=== PATIENT | male | born 1960 | race Caucasian/White ===

== ENCOUNTER 2016-09-02 12:36 | Emergency (ER) | payer MEDICAID ==
[~2016-09-02] VITALS: Ht 167.6 cm; Wt 63.5 kg
[~2016-09-02 12:36] MED LIST: CEPH-91; CYCL5TAB89; ESOM20CA; LEVO25TA49; NAPR-223
[2016-09-02 12:53] VITALS: BP 124/88
[2016-09-02] MEDS ORDERED: HYDROcodone-ACET 10/325MG TAB PO ONE (13:15)
== END 2016-09-02 14:57 | disposition home or self-care (01) ==
LOC: EDBD 12:36 → ER 12:43
DX: S16.1XXA Strain of muscle, fascia and tendon at neck level, initial encounter (principal); J44.9 Chronic obstructive pulmonary disease, unspecified; E07.9 Disorder of thyroid, unspecified; G89.29 Other chronic pain; Z87.440 Personal history of urinary (tract) infections; X58.XXXA Exposure to other specified factors, initial encounter; Y93.89 Activity, other specified; Y99.8 Other external cause status; Y92.89 Other specified places as the place of occurrence of the external cause; Z88.6 Allergy status to analgesic agent; Z88.2 Allergy status to sulfonamides; Z79.899 Other long term (current) drug therapy
CPT/HCPCS: 72040

== ENCOUNTER 2022-09-13 18:03 | Emergency (ER) | payer MEDICAID ==
[~2022-09-13] VITALS: Ht 167.6 cm; Wt 70.0 kg
[2022-09-13] MEDS ORDERED: SODIUM CHLORIDE 0.9% 1,000 ML IV ONE (18:30)
[2022-09-13 18:39] LABS: Basophils # (auto) 0.1 10 ^3/uL (0-0.2); Basophils % (auto) 0.7 % (0.0-2.0); Eosinophils # (auto) 0.1 10 ^3/uL (0-0.8); Eosinophils % (auto) 0.8 % (0.0-7.0); Hematocrit 38.4 % (41.0-53.0); Hemoglobin 12.8 g/dL (13.5-17.5); Lymphocytes # (auto) 1.4 10 ^3/uL (0.4-5.4); Lymphocytes % (auto) 18.9 % (10.0-50.0); Mean Corpuscular Hemoglobin 31.4 pg (28.0-32.0); Mean Corpuscular Hgb Conc. 33.4 g/dL (32.0-36.0); Monocytes # (auto) 0.6 10 ^3/uL (0-1.3); Neutrophils # (auto) 5.1 10 ^3/uL (1.6-8.6); Neutrophils % (auto) 71.6 % (37.0-80.0); Nucleated Red Blood Cells % 0.1 %; Red Blood Cells 4.08 10^6/uL (4.5-5.90); Red Cell Distribution Width 14.2 % (11.8-14.3); White Blood Cell 7.2 10^3/uL (4.4-10.8)
[2022-09-13 18:55] LABS: Albumin 3.5 g/dL (3.4-5.0); Calcium 7.8 mg/dL (8.5-10.1)
[2022-09-13 18:57] LABS: BUN/Creatinine Ratio 13.4 (10.0-20.0); Bilirubin, Total 0.8 mg/dL (0.2-1.0); Total Protein 5.7 g/dL (6.4-8.2)
[2022-09-13 21:30] VITALS: BP 134/82
== END 2022-09-13 21:36 | disposition home or self-care (01) ==
LOC: EDBD 18:03 → ER 18:08
DX: E86.0 Dehydration (principal); J44.9 Chronic obstructive pulmonary disease, unspecified; E87.5 Hyperkalemia; Z90.49 Acquired absence of other specified parts of digestive tract; Z90.89 Acquired absence of other organs; Z88.5 Allergy status to narcotic agent; Z88.6 Allergy status to analgesic agent; Z88.2 Allergy status to sulfonamides; Z87.442 Personal history of urinary calculi
CPT/HCPCS: 36415; 80053; 84484; 85025; 93005; 99284; J7030

== ENCOUNTER 2023-08-23 11:11 | Inpatient (IN) | payer MEDICAID ==
[~2023-08-23] VITALS: Ht 167.6 cm; Wt 66.5 kg
[~2023-08-23 11:11] MED LIST changes: +LEVO25TA2; -LEVO25TA49
[2023-08-23] MEDS: SODIUM CHLORIDE 0.9% 1,000 ML IV ONE ×2 (11:30)
[2023-08-23 12:12] LABS: Basophils # (auto) 0 10 ^3/uL (0-0.2); Basophils % (auto) 0.6 % (0.0-2.0); Eosinophils # (auto) 0.3 10 ^3/uL (0-0.8); Eosinophils % (auto) 4.5 % (0.0-7.0); Hematocrit 39.1 % (41.0-53.0); Hemoglobin 12.5 g/dL (13.5-17.5); Lymphocytes # (auto) 1.9 10 ^3/uL (0.4-5.4); Lymphocytes % (auto) 27.7 % (10.0-50.0); Mean Corpuscular Hemoglobin 29.8 pg (28.0-32.0); Mean Corpuscular Hgb Conc. 31.9 g/dL (32.0-36.0); Mean Corpuscular Volume 93.5 fL (80.0-100.0); Monocytes # (auto) 0.5 10 ^3/uL (0-1.3); Neutrophils # (auto) 4.1 10 ^3/uL (1.6-8.6); Neutrophils % (auto) 60.2 % (37.0-80.0); Nucleated Red Blood Cells % 0.1 %; Red Blood Cells 4.18 10^6/uL (4.5-5.90); White Blood Cell 6.9 10^3/uL (4.4-10.8)
[2023-08-23 12:52] LABS: Chloride 111 mmol/L (98-107); Potassium 4.7 mmol/L (3.5-5.1); Sodium 144 mmol/L (136-145)
[2023-08-23 12:53] LABS: Anion Gap 5 (5-15); Carbon Dioxide 28 mmol/L (20-30)
[2023-08-23 12:54] LABS: Calcium 9.5 mg/dL (8.5-10.1)
[2023-08-23 12:59] LABS: BUN/Creatinine Ratio 15.6 (10.0-20.0); Blood Alcohol < 3.0 mg/dL (<10); Blood Urea Nitrogen 23 mg/dL (9-23); Glucose 138 mg/dL (74-106)
[2023-08-23] MEDS ORDERED: DOCUSATE SOD 100 MG CAP PO PRN (18:30)
[2023-08-23] MEDS ORDERED: ONDANSETRON HCL 4 MG/2 ML VIAL IV PRN (18:30)
[2023-08-23] MEDS ORDERED: MORPHINE SULFATE INJ 2 MG/ml SYRG IV PRN (18:30)
[2023-08-23] MEDS ORDERED: NITROGLYCERIN 0.4 MG SL TAB SL PRN (18:30)
[2023-08-23] MEDS ORDERED: LEVO-177 PO (19:29)
[2023-08-23] MEDS ORDERED: METO-289 PO (19:29)
[2023-08-23] MEDS ORDERED: ATOR40TA52 PO (19:29)
[2023-08-23] MEDS ORDERED: TAMS0.4C36 PO (19:29)
[2023-08-23] MEDS ORDERED: MONT5CHW33 PO (19:29)
[2023-08-23] MEDS ORDERED: ALBUTEROL SULF 2.5 MG/0.5ML(0.5%) NEB SOLN NEB PRN (19:45)
[2023-08-23] MEDS ORDERED: IPRATROPIUM BROM 0.5 MG/2.5ML INH SOL NEB PRN (19:45)
[2023-08-23 20:00] VITALS: O2SAT 97
[2023-08-23 20:09] VITALS: BP 136/86; PULSE 74; RESP 17; TEMP 97.7; O2SAT 97
[2023-08-24] VITALS (7 sets, daily range): BP systolic 112–161; BP diastolic 69–111; PULSE 50–60; RESP 13–20; TEMP 97.5–98; O2SAT 94–99
[2023-08-24] MEDS: SODIUM CHLORIDE 0.9% 1,000 ML IV SCH (04:24)
[2023-08-24] MEDS: MONTELUKAST SODIUM 10 MG TAB PO SCH (04:36)
[2023-08-24] MEDS: LEVOTHYROXINE SODIUM 88 MCG TAB PO SCH (06:10)
[2023-08-24 06:26] LABS: Basophils # (auto) 0.1 10 ^3/uL (0-0.2); Basophils % (auto) 0.7 % (0.0-2.0); Eosinophils # (auto) 0.2 10 ^3/uL (0-0.8); Eosinophils % (auto) 2.4 % (0.0-7.0); Hematocrit 36.2 % (41.0-53.0); Hemoglobin 12.1 g/dL (13.5-17.5); Lymphocytes # (auto) 2.1 10 ^3/uL (0.4-5.4); Mean Corpuscular Hemoglobin 31.2 pg (28.0-32.0); Mean Corpuscular Hgb Conc. 33.5 g/dL (32.0-36.0); Monocytes # (auto) 0.7 10 ^3/uL (0-1.3); Monocytes % (auto) 8.6 % (0.0-12.0); Neutrophils # (auto) 5.6 10 ^3/uL (1.6-8.6); Neutrophils % (auto) 64.3 % (37.0-80.0); Red Blood Cells 3.89 10^6/uL (4.5-5.90); Red Cell Distribution Width 14.9 % (11.8-14.3); White Blood Cell 8.6 10^3/uL (4.4-10.8)
[2023-08-24 06:38] LABS: Alanine Aminotransferase 23 U/L (7-40); Albumin 3.4 g/dL (3.2-4.8); Alkaline Phosphatase 61 U/L (46-116); Anion Gap 2 (5-15); Aspartate Aminotransferase 20 U/L (13-40); BUN/Creatinine Ratio 16.5 (10.0-20.0); Blood Urea Nitrogen 18 mg/dL (9-23); Calcium 8.3 mg/dL (8.7-10.4); Carbon Dioxide 31 mmol/L (20-30); Chloride 112 mmol/L (98-107); Glucose 104 mg/dL (74-106); Sodium 145 mmol/L (136-145)
[2023-08-24 06:39] LABS: Bilirubin, Total 0.8 mg/dL (0.2-1.0); Total Protein 5.8 g/dL (5.7-8.2)
[2023-08-24 06:56] LABS: Triglycerides 114 mg/dL (< 150)
[2023-08-24 06:57] LABS: LDL Cholesterol 45 mg/dL (< 100)
[2023-08-24 06:58] LABS: Cholesterol 93 mg/dL (< 200); HDL Cholesterol 31 mg/dL (40-59)
[2023-08-24 09:06] LABS: Urine Bacteria None Seen /hpf (None Seen)
[2023-08-24 09:19] LABS: Urine Blood Negative /uL (Negative); Urine Clarity Clear (Clear); Urine Color Light-Yellow (Yellow); Urine Protein, UAD Negative (Negative); Urine Specific Gravity 1.018 (1.001-1.035); Urine Urobilinogen Normal (Negative); Urine WBC 1 /hpf (0 - 3)
[2023-08-24 09:26] LABS: Amphetamine Screen, Urine Neg (NEGATIVE); Barbiturate Scree,Urine Neg (NEGATIVE); Benzodiazephine Screen, Urine Neg (NEGATIVE); Cocaine Screen, Urine Neg (NEGATIVE); Opiate Scree,Urine Neg (NEGATIVE); Phencyclidine Screen, Urine Neg (NEGATIVE)
[2023-08-24 09:27] LABS: Cannabinoid Screen, Urine Neg (NEGATIVE)
[2023-08-24] MEDS: METOPROLOL SUCCINATE XL 50 MG TAB PO SCH (10:13)
[2023-08-24] MEDS: ATORVASTATIN 20 MG TAB PO SCH (10:13)
[2023-08-24] MEDS: PANTOPRAZOLE 40 MG/10 ML VIAL INJ IV SCH (10:14)
[2023-08-24] MEDS: ENOXAPARIN SOD 40 MG/0.4 ML SYRINGE SC SCH (10:14)
[2023-08-24] MEDS ORDERED: LORazepam 2MG/ML-1ML VIAL IV PRN ×2 (11:00)
[2023-08-24] MEDS: levETIRAcetam 500 MG TAB PO SCH (11:41)
[2023-08-24] MEDS ORDERED: PANT40T PO (13:23)
[2023-08-24] MEDS ORDERED: UMEC1INH INH (13:23)
[2023-08-24] MEDS ORDERED: DULO1CAP5 PO (13:23)
[2023-08-24] MEDS ORDERED: NAPR-591 PO (13:23)
[2023-08-24] MEDS ORDERED: PROM1SOL4 (13:23)
[2023-08-24] MEDS ORDERED: IPRIH INH (13:23)
[2023-08-24] MEDS ORDERED: OXY5T PO (13:23)
[2023-08-24] MEDS ORDERED: ONDA-180 PO (13:23)
[2023-08-24] MEDS ORDERED: ALBU0.084 NEB (13:23)
[2023-08-24] MEDS ORDERED: BACL10TA PO (13:23)
[2023-08-24] MEDS ORDERED: ACLI400A5 (13:23)
[2023-08-24] MEDS ORDERED: IPRAAER6 (13:23)
[2023-08-24] MEDS ORDERED: TIZA-206 PO (13:23)
[2023-08-24] MEDS ORDERED: HYDR-3682 PO (13:23)
[2023-08-24] MEDS ORDERED: NALO1TAB4 (13:23)
[2023-08-24] MEDS ORDERED: PNEUMOCOCCAL VACC POLYS 25 MCG/0.5 ML VIAL IM ONE (16:30)
[2023-08-24] MEDS: TAMSULOSIN HYDROCHLORIDE 0.4 MG CAP PO SCH (18:39)
[2023-08-25] VITALS (11 sets, daily range): BP systolic 101–148; BP diastolic 57–86; PULSE 50–80; RESP 14–20; TEMP 97.6–98.7; O2SAT 93–100
[2023-08-25] MEDS ORDERED: HYDROcodone-ACET 5/325MG TAB PO PRN (11:45)
[2023-08-26] VITALS (8 sets, daily range): BP systolic 63–146; BP diastolic 57–111; PULSE 54–75; RESP 16–20; TEMP 36.7; O2SAT 93–96
[2023-08-26] MEDS ORDERED: KEP500T PO (15:13)
== END 2023-08-26 18:20 | disposition home or self-care (01) | DRG 204 ==
LOC: ER 11:11 → TELE 18:36 → TELE-WESTW 08-24 13:40
PROVIDERS: ADMIT Nurse Practitioner Family; ATTEND Nurse Practitioner Acute Care
DX: R55 Syncope and collapse (principal); N17.0 Acute kidney failure with tubular necrosis; G93.41 Metabolic encephalopathy; E03.9 Hypothyroidism, unspecified; J44.9 Chronic obstructive pulmonary disease, unspecified; R00.1 Bradycardia, unspecified; N40.0 Benign prostatic hyperplasia without lower urinary tract symptoms; E78.5 Hyperlipidemia, unspecified; F17.200 Nicotine dependence, unspecified, uncomplicated; G47.30 Sleep apnea, unspecified; G89.4 Chronic pain syndrome; T46.5X5A Adverse effect of other antihypertensive drugs, initial encounter; I10 Essential (primary) hypertension; G40.909 Epilepsy, unspecified, not intractable, without status epilepticus; Z88.2 Allergy status to sulfonamides; Z88.8 Allergy status to other drugs, medicaments and biological substances; Z79.899 Other long term (current) drug therapy; Z83.3 Family history of diabetes mellitus; Z90.49 Acquired absence of other specified parts of digestive tract; Z87.442 Personal history of urinary calculi; Z86.73 Personal history of transient ischemic attack (TIA), and cerebral infarction without residual deficits; Y92.89 Other specified places as the place of occurrence of the external cause
CPT/HCPCS: 36415; 70450; 70551; 71045; 80048; 80053; 80061; 80307; 80320; 81001; 83036; 84443; 85025; 93005; 93306; 93886; 95819; 96360; C9113; G0378